=== PATIENT | female | born 1990 | race Caucasian/White ===

== ENCOUNTER 2017-04-24 17:45 | Emergency (ER) | payer OTHER ==
[2017-04-24 17:50] VITALS: BP 145/93
--- NOTE | 2017-04-24 19:04 | PHYS DOC ---
Past History Past Medical History: High Cholesterol, Hypertension, Other Past Surgical History: , Tonsillectomy Alcohol Use: None Drug Use: None Adult General Chief Complaint Chief Complaint: ABDOMINAL PAIN HPI HPI Patient is a 27-year-old female who presents ambulatory to the ED with the complaint of right upper quadrant abdominal pain for one week. It has been constant during this time but it does wax and wane. She has previously had this pain maybe once a year for about the last 2 years that only lasted a day or so. This time it just never went away. While she's had the pain she has felt hot and sweaty on occasion but no measured fever. No chills. She had nausea for the last 2 days but no vomiting. She has had a couple of loose stools but not really diarrhea. No blood in her stools. She denies injury to the area. She has not had a cough, no shortness of air. She has had some possible urinary frequency but no other UTI symptoms. She has had a UTI before and does not believe she has one now. Past medical history significant for elevated cholesterol and also hypertension , she takes 2 blood pressure medicines. She has not had cholecystectomy. Patient does not believe she is although she did have unprotected sex in the last week, LMP 2-1/2-3 weeks ago. PCP at [place]. 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 Patient last ate at around 11 or noon, she had some fruit and vegetables and a cheese stick. Since then she has had a [employer] drink with cream in it. Review of Systems Review of Systems Constitutional: Has felt hot and cold but no measured fever Eyes: Denies change in visual acuity, redness, or eye pain [] HENT: Denies nasal congestion or sore throat [] Respiratory: Denies cough or shortness of breath [] Cardiovascular: Denies chest pain GI: As in history of present illness : Denies dysuria Musculoskeletal: Denies back pain or joint pain [] Integument: Denies rash or skin lesions [] Neurologic: Denies headache, focal weakness or sensory changes [] All other systems were reviewed and found to be within normal limits, except as documented in this note. Physical Exam Physical Exam Constitutional: Well developed, well nourished, no acute distress, non-toxic appearance. Alert, ambulatory, mentating normally, warm and dry. HENT: Normocephalic, atraumatic, bilateral external ears normal, nose normal. [] Eyes: conjunctiva normal, no discharge. [] Neck: Normal range of motion, no stridor. [] Cardiovascular:Heart rate regular rhythm, no murmur [] Lungs & Thorax: Bilateral breath sounds clear to auscultation [] Abdomen: Bowel sounds normal, soft, no masses, no pulsatile masses. Nondistended. Right upper quadrant tenderness to palpation. No epigastric or left upper quadrant tenderness. No lower quadrant tenderness. No hepatomegaly or mass palpable. Skin: Warm, dry, no erythema, no rash. [] Extremities: No tenderness, no cyanosis, no clubbing, ROM intact, no edema. [] Neurologic: Alert and oriented X 3, normal motor function, no focal deficits noted. [] Current Patient Data Vital Signs Vital Signs Date Time Temp Pulse Resp B/P (MAP) Pulse Ox O2 Delivery O2 Flow Rate FiO2 04/24/17 17:50 98.0 73 16 96 EKG EKG [] Radiology/Procedures Radiology/Procedures Right upper quadrant ultrasound read by the radiologist. No acute findings. Gallbladder is normal.[] Course & Med Decision Making Course & Med Decision Making Pertinent Labs and Imaging studies reviewed. (See chart for details) 27-year-old female presents with 1 week of waxing and waning but constant right upper quadrant pain. There is a small chance she may be she states that that would have occurred only about a week ago. We will check labs and a right upper quadrant ultrasound. Patient is agreeable to that plan. Labs unremarkable. Ultrasound negative. The patient remained stable. When I went back to recheck on her, she was feeding her baby some baby food while her held the baby. I reassured the patient. We will try giving her a laxative to see whether that will help her symptoms. See instructions for plan. [] Dragon Disclaimer Dragon Disclaimer This electronic medical record was generated, in whole or in part, using a voice recognition dictation system. Departure Departure: Impression: Primary Impression: Right upper quadrant abdominal pain of unknown etiology Disposition: 01 HOME, SELF-CARE Condition: STABLE Referrals: NON,STAFF (PCP) Patient Instructions: Abdominal Pain (Nonspecific) Additional Instructions: As we discussed, lab tests and ultrasound did not show a cause of your pain. It does not appear to be your gallbladder. I recommend treating your pain with a laxative to see if that helps. Purchase 2 bottles of magnesium citrate [id number]. Drink one half bottle every 6-12 hours until you have good results. Good results will be several bowel movements until your colon is "cleaned out". If that helps your pain, no further treatment is necessary. If it does not help your pain, see your doctor in 1-2 days for recheck. ZOFIA SULLIVAN MD Apr 24, 2017 19:04
[2017-04-24 19:25] LABS: BASO % 1 % (0-3); EOS # 0.2 x10^3/uL (0.0-0.7); EOS % 2 % (0-3); HEMATOCRIT 37.4 % (36.0-47.0); HEMOGLOBIN 13.4 g/dL (12.0-15.5); LYMPH # 2.5 x10^3/uL (1.0-4.8); LYMPH % 29 % (24-48); MEAN CORPUSCULAR HEMOGLOBIN 30 pg (25-35); MEAN CORPUSCULAR HGB CONC 36 g/dL (31-37); MEAN CORPUSCULAR VOLUME 84 fL (79-100); MONO # 0.5 x10^3/uL (0.0-1.1); MONO % 6 % (0-9); NEUT # 5.2 x10^3uL (1.8-7.7); NEUT % 62 % (31-73); PLATELET COUNT 294 x10^3/uL (140-400); RED BLOOD COUNT 4.47 x10^6/uL (3.50-5.40); RED CELL DISTRIBUTION WIDTH 12.9 % (11.5-14.5); WHITE BLOOD COUNT 8.4 x10^3/uL (4.0-11.0)
[2017-04-24 19:42] LABS: ALBUMIN 4.1 g/dL (3.4-5.0); ALBUMIN/GLOBULIN RATIO 1.1 (1.0-1.7); CALCIUM 9.4 mg/dL (8.5-10.1); CREATININE 0.8 mg/dL (0.6-1.0); GFR 85.4; POTASSIUM 3.8 mmol/L (3.5-5.1); TOTAL BILIRUBIN 0.5 mg/dL (0.2-1.0); TOTAL PROTEIN 7.7 g/dL (6.4-8.2)
[2017-04-24 19:56] LABS: BILIRUBIN,URINE NEG (NEG); CLARITY,URINE HAZY; COLOR,URINE YELLOW; GLUCOSE,URINE NEG (NEG); NITRITE,URINE NEG (NEG); UROBILINOGEN,URINE 0.2 mg/dL (0.2 mg/dL)
[2017-04-24 19:57] LABS: BACTERIA,URINE FEW /HPF (0-FEW); RBC,URINE OCC /HPF (0-2); SQUAMOUS EPITHELIAL CELL,UR MANY /LPF; WBC,URINE OCC /HPF (0-4)
--- NOTE | 2017-04-24 21:34 | RAD ---
Limited abdomen ultrasound HISTORY: Right upper quadrant abdominal pain. FINDINGS: Visualized segments of the pancreas, aorta and IVC are normal although large segments of the pancreas body and tail, mid to distal IVC and mid to distal aorta are poorly visualized due to extensive bowel gas shadowing. Mild increased liver echogenicity may represent mild steatosis. No liver masses documented. Normal directional blood flow the portal vein. No gallstones or inflammatory changes of the gallbladder documented. No biliary ductal dilation common bile duct diameter 5 mm. Spleen and left kidney were not evaluated. Right renal length 10.4 cm, no gross evidence of right renal mass or hydronephrosis although rib shadowing and bowel gas shadowing limits visualization segments of the right kidney. IMPRESSION: Possible mild imaging changes of liver steatosis. Otherwise negative exam. Electronically signed by: Velasquez Crowell MD (04/24/2017 9:30 PM) [facility]
== END 2017-04-24 22:03 | disposition home or self-care (01) ==
LOC: ER 17:45
DX: R10.11 Right upper quadrant pain (principal); R11.0 Nausea; R19.7 Diarrhea, unspecified; E78.00 Pure hypercholesterolemia, unspecified; I10 Essential (primary) hypertension; Z87.440 Personal history of urinary (tract) infections; Z98.890 Other specified postprocedural states
CPT/HCPCS: 36415; 76705; 80053; 81001; 81025; 83690; 85025; 99285-25